=== PATIENT | male | born 1935 | race Caucasian/White ===

== ENCOUNTER 2017-11-11 07:08 | Day surgery (SDC) | payer MEDICARE ==
[2017-11-11 07:34] VITALS: BP 116/75; PULSE 92; RESP 20; TEMP 97.8; O2SAT 94
[2017-11-11] MEDS ORDERED: CENTCHW4 CHEW (07:45)
[2017-11-11] MEDS ORDERED: TRIA37.53 PO (07:45)
[2017-11-11] MEDS ORDERED: OSTETAB12 PO (07:45)
[2017-11-11] MEDS ORDERED: BUPR300T PO (07:45)
[2017-11-11] MEDS ORDERED: ATOR80TA45 PO (07:45)
[2017-11-11] MEDS ORDERED: FISHCAP4 PO (07:45)
[2017-11-11] MEDS ORDERED: IPRAAER INH (07:45)
[2017-11-11] MEDS ORDERED: COQ-50CA2 PO (07:45)
[2017-11-11] MEDS ORDERED: SODIUM CHLOR 0.9% 1000 ML INJ 1,000 ML IV SCH (08:00)
[2017-11-11 08:32] LABS: BICARBONATE 27.1 MEQ/L (21.0-32.0); CALCIUM 8.5 MG/DL (8.5-10.1); CREATININE 1.09 MG/DL (0.60-1.30)
[2017-11-11 09:10] VITALS: BP 163/84; PULSE 83; RESP 20; TEMP 97.8; O2SAT 93
--- NOTE | 2017-11-11 09:19 | PD.RAD ---
Post Procedure Progress Note Pre Procedure Diagnosis: (1) Multiple sclerosis Post Procedure Diagnosis: (1) Multiple sclerosis Procedure Date: Nov 11, 2017 Supervising Radiologist: Moo Conway Proceduralist/Assist: RT Rosemary(R), RT Pinky(R)(CV) Anesthesia: Local Plan of Activity Patient to Unit: ROPU Patient Condition: Good See PACS Report for procedural detail/treatment Spinal Procedure Lumbar Puncture L2-L3 Fluid Removal (CCs): 9 Fluid Description: Clear Moo Conway MD Nov 11, 2017 09:19
[2017-11-11 10:19] LABS: SUPERNATE COLOR TUBE #1 CLEAR (CLEAR)
[2017-11-11 10:23] LABS: CSF LYMPHOCYTES 55 %; CSF MONOCYTES 30 %; CSF NEUTROPHILS 15 %; RBC TUBE #4 7 /MM3; WBC TUBE #4 2 /MM3 (0-10)
[2017-11-11 11:10] VITALS: BP 139/89; PULSE 76; RESP 20; TEMP 97.7; O2SAT 95
--- NOTE | 2017-11-11 13:16 | RADRPT ---
EXAM DATE/TIME: 11/11/2017 08:42 [facility] COMPARISON: No previous studies available for comparison. INDICATIONS : Patient presents with unsteady gait in need of lumbar puncture to rule out multiple sclerosis. MEDICAL HISTORY : DM COPD High cholesterol Polymalgia SURGICAL HISTORY : RT knee sx ENCOUNTER: Initial ACUITY: 1 year PAIN SCORE: 0/10 LOCATION: N/A LUMBAR PUNCTURE TIME: 08:56 hours FLUORO TIME: 1.2 minutes IMAGE SERIES: 1 ACCESS LEVEL: L2-3 FLUID: 9 cc of clear CSF was collected and sent to the laboratory for analysis. PROCEDURE : 1. Fluoroscopic guided lumbar puncture. The risks, benefits and alternatives to the procedure were explained and verbal and written consent w as obtained. The site was prepped in sterile fashion. Full sterile technique was used, including ca p, mask, sterile gloves and gown and a large sterile sheet. Hand hygiene and 2% chlorhexidine and/or betadine/alcohol prep was utilized per protocol for cutaneous antisepsis. The skin and subcutaneous tissues were infiltrated with local anesthetic solution. With fluoroscopic guidance the lumbar thecal sac was punctured at the level above. The fluid describ ed above was removed without difficulty. The patient tolerated the procedure well and there were no complications. CONCLUSION: Uncomplicated fluoroscopically guided lumbar puncture. Moo Conway MD on November 11, 2017 at 13:13 Board Certified Radiologist. This report was verified electronically.
[2017-11-12 09:06] LABS: HSV 1,PCR Negative (Negative)
[2017-11-13 23:51] LABS: CSF CRYPTOCOCCUS ANTIGEN NOT DETECTED (()); VDRL CSF NON-REACTIVE (())
[2017-11-14 09:23] LABS: CSF CRYPTOCOCCUS AG CONF ND (NOT DETECTD)
== END 2017-11-11 12:40 | disposition home or self-care (01) ==
LOC: HROP 07:08 → HRIP 07:12 → HROP 12:40
PROVIDERS: ATTEND Specialist
DX: G35 Multiple sclerosis (principal); J44.9 Chronic obstructive pulmonary disease, unspecified; E11.9 Type 2 diabetes mellitus without complications; E78.00 Pure hypercholesterolemia, unspecified
CPT/HCPCS: 62270; 77003; 80048; 82040; 82042; 82784; 82945; 83873; 83916; 84157; 86403; 86592; 86618; 87015; 87070; 87102; 87116; 87205; 87206; 87529; 89051; J7030